=== PATIENT | female | born 1970 | race Caucasian/White ===

== ENCOUNTER 2023-03-16 09:54 | Outpatient (OUT) | payer OTHER, SELFPAY ==
[2023-03-16 10:22] LABS: Basophils Percent Auto 0.1 % (0.2-2.0); Hemoglobin 13.6 g/dL (12.0-16.0); Immature Granulocytes Abs Auto 0.07 10^3/uL (0.00-0.03); Immature Granulocytes Pct Auto 0.4 % (0.0-0.5); Lymphocytes Percent Auto 5.8 % (20.5-60.0); Mean Corpuscular HGB Conc 32.4 g/dL (29.9-35.2); Mean Corpuscular Hemoglobin 31.6 pg (26.7-34.0); Mean Corpuscular Volume 97.7 fL (81.0-99.0); Mean Platelet Volume 9.4 fL (9.5-13.5); Monocytes Absolute Auto 0.8 10^3/uL (0.3-0.8); Monocytes Percent Auto 4.4 % (1.7-12.0); Neutrophils Absolute Auto 15.4 10^3/uL (1.4-6.5); Neutrophils Percent Auto 89.3 % (43.0-75.0); Platelet Count 327 10^3/uL (150-450); Red Cell Distribution Width 12.4 % (11.0-15.0); White Blood Count 17.2 10^3/uL (4.0-11.0)
[2023-03-16 10:33] LABS: Estimated Average Glucose 111 mg/dL; Glycohemoglobin A1C 5.5 % (4.5-6.2)
[2023-03-16 11:32] LABS: Alanine Aminotransferase 41 U/L (14-59); Albumin Level 3.8 g/dL (3.4-5.0); Alkaline Phosphatase 76 U/L (46-116); Anion Gap 14.4; Aspartate Amino Transferase 16 U/L (15-37); BUN Creatinine Ratio 15.9; Bilirubin Total 0.5 mg/dL (0.2-1.0); Calcium 9.9 mg/dL (8.5-10.1); Carbon Dioxide 27.4 mmol/L (21.0-32.0); Chloride 104 mmol/L (98-107); Chol HDL Ratio 2.2; Cholesterol 200 mg/dL (<=200); Estimated GFR (African America >60 (>=60); Estimated GFR (Non-African Ame >60 (>=60); Free T3 1.81 pg/mL (2.18-3.98); Globulin 3.8 g/dL; Glucose 109 mg/dL (74-106); HDL Cholesterol 92 mg/dL (40-60); Potassium 3.8 mmol/L (3.5-5.1); Sodium 142 mmol/L (136-145); Thyroid Stimulating Hormone 0.233 uIU/mL (0.358-3.740); Total Protein 7.6 g/dL (6.4-8.2); Triglycerides 59 mg/dL (<=150); VLDL CHOLESTEROL 11.8 mg/dL
[2023-03-18 13:07] LABS: Insulin 17.5 uIU/mL (2.6-24.9)
== END 2023-03-16 09:55 | disposition home or self-care (01) ==
LOC: LAB 10:02
PROVIDERS: PCP Family Medicine; Visit Provider Family Medicine
DX: R42 Dizziness and giddiness (principal); I10 Essential (primary) hypertension; E78.5 Hyperlipidemia, unspecified; R73.09 Other abnormal glucose; Z12.12 Encounter for screening for malignant neoplasm of rectum; D64.9 Anemia, unspecified
CPT/HCPCS: 36415; 80053; 80061; 83036; 83525; 83540; 84436; 84443; 84481; 85025

== ENCOUNTER 2023-03-30 15:04 | Outpatient (REF) | payer OTHER, SELFPAY ==
--- OUTSIDE RECORDS SUMMARY | 2023-03-30 15:09 | XMS_ITS | CCD ---
Author Name Unknown Address [address] [place] [address] Organization [facility] Care Team Providers Care Government Instructor Name Role Phone LUANN REYNA Admitting Unavailable LUANN REYNA Attending Unavailable LUANN REYNA Primary Care Unavailable LUANN REYNA Consulting Unavailable Results Test Name Value Interpretation Reference Range Facil ity CBC AUTO DIFFon 09-25-2019 Basophils (Bld) [#/Vol] 0.0 103/ul Normal 0.0-0.[address] [facility] Comment on above: Performed By: #### C BC #### [facility] [address] [place] [id number] Samara Rosmery Basophils/100 WBC (Bld) 0.5 % Normal 0.2-2.[address] [facility] Comment on above: Performed By: #### C BC #### [facility] [address] [place] [id number] Samara Rosmery Eosinophils (Bld) [#/Vol] 0.2 103/ul Normal 0.0-0.[address] [facility] Comment on above: Performed By: #### C BC #### [facility] [address] [place] [address] Samara Rosmery Eosinophils/100 WBC (Bld) 2.2 % Normal 0.9-7.0 [facility] Comment on above: Performed By: #### C BC #### [facility] [address] [place] [address] Samara Rosmery Erythrocyte distribution width (RBC) [Ratio] 12.7 % Normal 11.0-15.[address] [facility] Comment on above: Performed By: #### C BC #### [facility] [address] [place] [address] Samara Rosmery Hematocrit (Bld) [Volume fraction] 44.2 % Normal 36.0-48.[address] [facility] Comment on above: Performed By: #### C BC #### [facility] [address] [place], [place] [id number] Samara Rosmery Hemoglobin (Bld) [Mass/Vol] 14.2 g/dL Normal 12.0-16.[address] [facility] Comment on above: Performed By: #### C BC #### [facility] [address] [place], [place] [address] Samara Rosmery IG # 0.02 10e3/ul Normal 0.00-0.[address] [facility] Comment on above: Performed By: #### C BC #### [facility] [address] [place] [address] Samara Rosmery IG % 0.3 % Normal 0.0-0.[address] [facility] Comment on above: Performed By: #### C BC #### [facility] [address] [place] [address] Samara Rosmery Lymphocytes (Bld) [#/Vol] 1.5 103/ul Normal 1.2-3.[address] [facility] Comment on above: Performed By: #### C BC #### [facility] [address] [place], [place] [id number] Asmara Rosmery Lymphocytes/100 WBC (Bld) 19.6 % Critically low 20.5-60.[address] [facility] Comment on above: Performed By: #### C BC #### [facility] [address] [place], [place] [phone] Samaradeanna Botello MANUAL DIFF REQ NO Normal [facility] Comment on above: Performed By: #### C BC #### [facility] [address] [place], [place] [phone] Samara Rosmery MCH (RBC) [Entitic mass] 31.8 pg Normal 26.7-34.0 [facility] Comment on above: Performed By: #### C BC #### [facility] [address] [place] [address] Samara Rosmery MCHC (RBC) [Mass/Vol] 32.1 g/dL Normal 29.9-35.2 [facility] Comment on above: Performed By: #### C BC #### [facility] [address] [place], [place] [address] Samara Rosmery MCV (RBC) [Entitic vol] 98.9 fL Normal 81.0-99.[address] [facility] Comment on above: Performed By: #### C BC #### [facility] [address] [place], [place] [address] Samara Rosmery Monocytes (Bld) [#/Vol] 0.6 103/ul Normal 0.3-0.8 [facility] Comment on above: Performed By: #### C BC #### [facility] [address] [place] [address] Samara Rosmery Monocytes/100 WBC (Bld) 7.7 % Normal 1.7-12.[address] [facility] Comment on above: Performed By: #### C BC #### [facility] [address] [place] [address] Samara Rosmery Neutrophils (Bld) [#/Vol] 5.4 103/ul Normal 1.4-6.5 [facility] Comment on above: Performed By: #### C BC #### [facility] [address] [place] [address] Samara Rosmery Neutrophils/100 WBC (Bld) 69.7 % Normal 43.0-75.0 [facility] Comment on above: Performed By: #### C BC #### [facility] [address] [place] [address] Samara Rosmery Platelet mean volume (Bld) [Entitic vol] 9.2 fL Critically low 9.5-13.5 [facility] Comment on above: Performed By: #### C BC #### [facility] [address] [place] [address] Samara Rosmery Platelets (Bld) [#/Vol] 264 103/ul Normal 150-450 [facility] Comment on above: Performed By: #### C BC #### [facility] [address] [place] [address] Samara Rosmery RBC (Bld) [#/Vol] 4.47 106/ul Normal 4.20-5.40 [facility] Comment on above: Performed By: #### C BC #### [facility] [address] [place], [place] [address] Samaradeanna Botello WBC (Bld) [#/Vol] 7.8 103/ul Normal 4.0-11.[address] [facility] Comment on above: Performed By: #### C BC #### [facility] [address] [place], [place] [address] Samara Botello FREE THYROXINE INDEX T7on FTI 2.42 Normal [facility] Comment on above: Performed By: #### C MP, LIPID, T7, TSH #### [facility] [address] [place] [address] Samara Botello T3U 35.0 % Normal 23.5-40.[address] [facility] Comment on above: Performed By: #### C MP, LIPID, T7, TSH #### [facility] [address] [place] [address] Samaradeanna Botello T4 [Mass/Vol] 6.90 ug/dL Normal 5.53-11.00 [facility] Comment on above: Performed By: #### C MP, LIPID, T7, TSH #### [facility] [address] [place] [address] Samara Botello GLYCOHEMOGLOBIN A1Con 2019 Glucose [Mass/Vol] 114 mg/dL Normal [facility] Comment on above: Performed By: #### A 1C #### [facility] [address] [place] [address] Samaradeanna Botello HbA1c (Bld) [Mass fraction] 5.6 % Normal <=6.0 [facility] Comment on above: Performed By: #### A 1C #### [facility] [address] [place], [place] [address] Samaradeanna Hintonen IRONon 09-25-2019 Iron [Mass/Vol] 29.0 ug/dL Critically low 37.0-170.0 [facility] Comment on above: Performed By: #### I MIRACLE #### [facility] [address] [place] [address] Samara Rosmery LIPID PROFILEon 09-25-2019 CHOL-HDL RATIO NORM SEE BELOW Normal [facility] Comment on above: Result Comment: 3.3 - 4.4 LOW RISK 4.4 - 7.1 AVERAGE RISK 7.1 - 11.0 MODERATE RISK >11.0 HIGH RISK Performed By: #### C MP, LIPID, T7, TSH #### [facility] [address] [place], [place] [address] Samara Rosmery Cholesterol [Mass/Vol] 157 mg/dL Normal <=[address] [facility] Comment on above: Performed By: #### C MP, LIPID, T7, TSH #### [facility] [address] [place], [place] [address] Samara Rosmery Cholesterol in HDL [Mass/Vol] 69 mg/dL Normal [facility] Comment on above: Performed By: #### C MP, LIPID, T7, TSH #### [facility] [address] [place] [address] Samara Rosmery Cholesterol in HDL [Mass/Vol] > or = 60 mg/dl - LOW CARDIOVASCULAR RISK <40 mg/dl - HIGH CARDIOVASCULAR RISK Normal [facility] Comment on above: Performed By: #### C MP, LIPID, T7, TSH #### [facility] [address] [place], [place] [address] Samara Rosmery Cholesterol in LDL [Mass/Vol] 80.6 mg/dL Normal [facility] Comment on above: Performed By: #### C MP, LIPID, T7, TSH #### [facility] [address] [place], [place] [address] Samara Rosmery Cholesterol in LDL [Mass/Vol] SEE BELOW Normal [facility] Comment on above: Result Comment: <100 mg/dl OPTIMAL 100 - 129 mg/dl NEAR OR ABOVE OPTIMAL 130 - 159 mg/dl BORDERLINE HIGH 160 - 189 mg/dl HIGH >190 mg/dl VERY HIGH Performed By: #### C MP, LIPID, T7, TSH #### [facility] [address] [place] [address] Samara Rosmery Cholesterol.total/Cho lesterol in HDL [Mass ratio] 2.3 {ratio} Normal [facility] Comment on above: Performed By: #### C MP, LIPID, T7, TSH #### [facility] [address] [place] [address] Samara Rosmery Triglyceride [Mass/Vol] 37 mg/dL Normal <=[address] [facility] Comment on above: Performed By: #### C MP, LIPID, T7, TSH #### [facility] [address] [place] [address] Samara Rosmery VLDL CALC 7.4 mg/dL Normal [facility] Comment on above: Performed By: #### C MP, LIPID, T7, TSH #### [facility] [address] [place], [place] [address] Samaradeanna Botello PROF 14(COMP METB)on 020 Albumin [Mass/Vol] 3.8 g/dL Normal 3.5-5.0 [facility] Comment on above: Performed By: #### C MP, LIPID, T7, TSH #### [facility] [address] [place], [place] [address] Samara Rosmery Albumin/Globulin [Mass ratio] 0.9 {ratio} Normal [facility] Comment on above: Performed By: #### C MP, LIPID, T7, TSH #### [facility] [address] [place], [place] [address] Samara Rosmery ALP [Catalytic activity/Vol] 64 U/L Normal 38-[address] [facility] Comment on above: Performed By: #### C MP, LIPID, T7, TSH #### [facility] [address] [place] [address] Samara Rosmery ALT [Catalytic activity/Vol] 20 U/L Normal 9-[address] [facility] Comment on above: Performed By: #### C MP, LIPID, T7, TSH #### [facility] [address] [place], [place] [address] Samara Rosmery Anion gap [Moles/Vol] 13.8 mmol/L Normal [facility] Comment on above: Performed By: #### C MP, LIPID, T7, TSH #### [facility] [address] [place], [place] [address] Samara Rosmery AST [Catalytic activity/Vol] 17 U/L Normal 14-36 [facility] Comment on above: Performed By: #### C MP, LIPID, T7, TSH #### [facility] [address] [place] [address] Samara Rosmery Bilirubin Ql (U) 0.4 mg/dL Normal 0.2-1.3 [facility] Comment on above: Performed By: #### C MP, LIPID, T7, TSH #### [facility] [address] [place] [address] Samara Rosmery Calcium [Mass/Vol] 9.9 mg/dL Normal 8.4-10.2 [facility] Comment on above: Performed By: #### C MP, LIPID, T7, TSH #### [facility] [address] [place] [address] Samara Rosmery Chloride [Moles/Vol] 102 mmol/L Normal 98-107 [facility] Comment on above: Performed By: #### C MP, LIPID, T7, TSH #### [facility] [address] [place] [address] Samara Rosmery CO2 [Moles/Vol] 27.4 mmol/L Normal 22.0-30.0 [facility] Comment on above: Performed By: #### C MP, LIPID, T7, TSH #### [facility] [address] [place] [address] Samara Rosmery Creatinine [Mass/Vol] 0.71 mg/dL Normal 0.52-1.04 [facility] Comment on above: Performed By: #### C MP, LIPID, T7, TSH #### [facility] [address] [place] [address] Samara Rosmery EGFR-AF DUTCH >60 Normal >=60 [facility] Comment on above: Performed By: #### C MP, LIPID, T7, TSH #### [facility] [address] [place] [address] Samara Rosmery EGFR-NON AF DUTCH >60 Normal >=60 [facility] Comment on above: Performed By: #### C MP, LIPID, T7, TSH #### [facility] [address] [place] [address] Samara Rosmery Globulin (S) [Mass/Vol] 4.0 g/dL Normal [facility] Comment on above: Performed By: #### C MP, LIPID, T7, TSH #### [facility] [address] [place] [address] Samara Rosmery Glucose [Mass/Vol] 107 mg/dL Critically high 74-106 [facility] Comment on above: Performed By: #### C MP, LIPID, T7, TSH #### [facility] [address] [place] [address] Samara Rosmery Potassium [Moles/Vol] 4.2 mmol/L Normal 3.4-5.0 [facility] Comment on above: Performed By: #### C MP, LIPID, T7, TSH #### [facility] [address] [place] [address] Samara Rosmery Protein [Mass/Vol] 7.8 g/dL Normal 6.1-8.2 [facility] Comment on above: Performed By: #### C MP, LIPID, T7, TSH #### [facility] [address] [place] [address] Samara Rosmery Sodium [Moles/Vol] 139 mmol/L Normal 137-145 [facility] Comment on above: Performed By: #### C MP, LIPID, T7, TSH #### [facility] [address] [place] [address] Samara Rosmery Urea nitrogen [Mass/Vol] 11.0 mg/dL Normal 7.0-17.0 [facility] Comment on above: Performed By: #### C MP, LIPID, T7, TSH #### [facility] [address] [place] [address] Samara Rosmery Urea nitrogen/Creatinine [Mass ratio] 15.5 mg/mg Normal [facility] Comment on above: Performed By: #### C MP, LIPID, T7, TSH #### [facility] [address] [place] [address] Samara Rosmery TSHon 09-25-2019 TSH Qn 0.695 uIU/mL Normal 0.470-4.680 [facility] Comment on above: Performed By: #### C MP, LIPID, T7, TSH #### [facility] [address] [place], [place] [address] Samara Botello TSH Qn SEE BELOW Normal [facility] Comment on above: Result Comment: <0.3 4 UIU/ml HYPERTHYROID 0.34-5.60 UIU/ml EUTHYROID >5.60 UIU/ml HYPOTHYROID Performed By: #### C MP, LIPID, T7, TSH #### [facility] [address] [place], [place] [address] Samara Botello Encounters Encounter Date Encounter Type Care Provider Facility Start: 09-30-2019 Encounter for genera l adult medical examination without abnormal [facility] Start: 09-25-2019 End: 09-26-2019 Patient encounter procedure LUANN HOY Facility: Encounter for genera l adult medical examination without abnormal findings [facility] Payers Date Payer Category Payer Unknown [id number] 1958 Unknown [id number] Summary Purpose Family History No Family History Records Found Advance Directives No Advanced Directives Records Found Additional Source Comments INFORMATION SOURCE (unrecogn ized section and content) DATE CREATED AUTHOR 10/14/2019 [facility] FOR RECORDS PERTAINING TO PATIENTS WHO ARE OR HAVE BEEN ENROLLED IN A CHEMICAL DEPENDENCY/SUBSTANCEABUSE PROGRAM, SOME INFORMATION MAY BE OMITTED. This clinical summary was aggregated from multiple sources. Caution should be exercised in using it in the provision of clinical care. This summary normalizes information from multiple sources, and as a consequence, information in this document may materially change the coding, format and clinical context of patient data. In addition, data may be omitted in some cases. CLINICAL DECISIONS SHOULD BE BASED ON THE PRIMARY CLINICAL RECORDS. [employer] provides no warranty or guarantee of the accuracy or completeness of information in this document.
[2023-03-31 11:47] LABS: Occult Blood Negative
== END 2023-03-30 15:05 | disposition home or self-care (01) ==
LOC: LAB 15:04
PROVIDERS: PCP Family Medicine; Visit Provider Family Medicine
DX: R42 Dizziness and giddiness (principal); I10 Essential (primary) hypertension
CPT/HCPCS: G0328